=== PATIENT | male | born 2005 | race Caucasian/White ===

== ENCOUNTER → 2024-03-11 | Outpatient (CLI) | payer BC, SELFPAY | END | disposition home or self-care (01) | PROVIDERS: PCP Family Medicine; Referring Provider Family Medicine; Visit Provider Family Medicine | DX: R69 Illness, unspecified (principal) ==

== ENCOUNTER → 2024-12-07 | Outpatient (CLI) | payer BC, SELFPAY ==
--- NOTE | 2024-12-07 13:07 | RAD_ITS ---
PROCEDURE: SHOULDER MIN 2 VIEWS REASON FOR EXAM: Chronic shoulder TECHNIQUE: Two-view right shoulder COMPARISON: None. RAD/Shoulder min 2 Views IMPRESSION: No significant arthritic process or joint narrowing is noted. Satisfactory alignment is seen throughout. No fracture or other significant osseous or joint space abnormality is noted. Negative examination. Reading Location: [id number]
== END | disposition home or self-care (01) ==
LOC: MTRAD 13:07
PROVIDERS: PCP Family Medicine; Referring Provider Family Medicine; Visit Provider Family Medicine
DX: M25.511 Pain in right shoulder (principal)
CPT/HCPCS: 73030

== ENCOUNTER 2025-02-09 16:30 | Outpatient (RCR) | payer BC, SELFPAY ==
--- NOTE | 2024-12-15 10:51 | HP.PTEVAL_ITS ---
Patient's Visit Information Visit Information Visit Information: BRITTANEY ANGELES is a 19 year old M referred to Physical Therapy by Shawn Mccoy MD with a diagnosis of R shoulder pain. Date of Evaluation: 12/15/24 Physical Therapist: Lit Ortiz, MG, OCS, CSCS Visit Plan Frequency: 2x /Week Duration: 4-6 Weeks Plan: 2x/wek for 2-6 weeks(2 to start)... Please do DTR and TP to R rhomboids, traps. Also stretch pecs, most of focus should bee scapulothoracic strength of rhomboids, traps, serratus on R side progressing to general strength at home with pics in first two weeks. Postural focus with scapula retracted and down. pt is to avoid aggravating activities and clicking with HEP and focus on posture. HEP IE:Avoid aggravating activities as much as you can. Fix posture with chest out and shoulder blades down and back before elevating arm Sleep on back or left side with pillow under right arm Repeated activities with upper arms at side as much as possible(and proper posture)?driving, computer etc. Subjective Subjective: R shoulder pain and clicks for over a year now. Using it to lift gives him pain while lifting and after done. Moving it alot can hurt. Pain is back at shoulder blade on R. Comfortable at rest. Keeps him up throbbing at times. Insidious onset, woke up that way one day. Clicks alot. 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 Loses sleep with busy days at work. Spends free time: video games. Sometimes it clicks a bit if moving mouse. Loses sleep 1-2x/week with a bad night. Sleeps on back but rolls to left side. No arm pain or symptoms, maybe one or two times wuick funny bone feeling. Pain R scapular: Pain Intensity (Out of 10): 0 Pain Intensity Range: 0 and 4 Comment: worse with long day at work. Objective Objective: Walks and transfers I today and normal. Posture is forward head and protracted scapula B mildly. Tender to palpation in R UT and mid traps and rhomboids. No obvious winging today but lots of clicking with FW elevation at R scapula almost subluxing scap off rib cage , this happens automatically sometimes also when he is not moving but he can usually stop it. cervical aROM is WNL and without pain, tightness on R side with L sb. scapular AROM is good although retraction and depression are tight feeling on R. g-h AROM WFL but avoids eend range er and flexion due to tightness. elbow and wrist AROM is WFL. reflexes 2/3 patella and achilles Sensation WNL to gross light touch B UE. strength is 4 in elbow flex and ext and wrist flexion ext B, 4- in er with some discomfort and 4 IR on R - sulcus, - HK, - neer, - ext rotation lag test, - drop arm but clicks lowering R arm in subluixing scap. Balance/Special Test Scores Quick DASH Score: 31.8175 Goals Goal 1:: sleep without interruption form shoulder Goal Time Frame: 4-6 Weeks Goal 2:: lift R arm without clicking and instability Goal Time Frame: 4-6 Weeks Goal 3:: Patient feel 80% better in shoulder pain and clicking Goal Time Frame: 4-6 Weeks Goal 4:: I appropriate CHANEL to limit future problems Goal Time Frame: 4-6 Weeks Goal 5:: quic15 or less.quickdash Goal Time Frame: 4-6 Weeks Rehabilitation Potential Physical Therapy Diagnosis: R scapular painlikely scapulothorcaic in nature effecting sleep and comfortable work funciton. Rehabilitation Potential: Fair Anticipated Interventions Patient/Client Instruction: Educate patient on: Condition and Plan of Care For the Purpose of:: To decrease pain, To increase ROM, To improve nutrient delivery to tissue, To improve muscle performance and motor function, To increase tolerance to activity/condition/position and To increase flexibil ity/ROM Therapeutic Exercise to Include: Strength training, Postural training and Flexibilty training For the Purpose of:: To decrease pain, To increase ROM, To improve nutrient delivery to tissue, To improve muscle performance and motor function and To increase tolerance to activity/condition/position Manual Therapy Techniques to Include: Trigger point massage and Soft tissue mobilization For the Purpose of:: To decrease pain, To improve nutrient delivery to tissue and To improve muscle performance and motor function TENS: Yes For the Purpose of:: To decrease pain and To improve nutrient delivery to tissue Text: Thank you for the opportunity to evaluate your patient. For Medicare and Medicare HMO plans, please review the plan of care and approve it. It will need to be FAXED BACK to us at [phone] for Medicare purposes. For Medicare only, by signing this I certify the plan of care. Please let me know if there are questions or concerns regarding this plan of care. Physician Signature: Date:
--- NOTE | 2025-01-26 11:27 | HP.PTREVAL ---
Re-Evaluation Intro: Shawn Mccoy MD, It has been my pleasure to treat BRITTANEY ANGELES over the last 11 visits for R shoulder pain. Please see the progress note below for an update on the physical therapy plan of care! Subjective Subjective: Getting better. Pain is much less. Not with every movement now but just with heavy stuff. Lifting motor or heavy box of parts and then it lingers if he does too much. Repetitive heavy actions will make it work. Pain is higher in neck. and into lats. Clicking is still present getting less frequent. No f/u with Dr. Mccoy. G and OTB ex 3x10, prone with 1-2#. Wants to do more aggressive strength. Objective Objective/Function: Scap appearing symmetrical today, no winging with any UE position on L or R. Tenderness slightly persists in R UT and into lats but no pain at rest or with UE AROM. Good cervical aROM. Able to resist flexion without wining on R side. Same goals still appropriate for 2 more weeks on POC. Plan Plan Plan: lengthen POC 2 more weeeks 2x/week for ... 1. please get aggressive with gym based UE strength and continue to teach gym based scap stabs as pt to go to [employer] when done with PT. Get list and progress to I, utilize principles of progressive loading and esstimated 1 RM. may still do some manual at nd TP release if painful. Balance/Gait/Functional tests Balance/Special Test Scores Quick DASH Score: 27.2725 Goals Goals Goal 1:: sleep without interruption form shoulder Goal Time Frame: 4-6 Weeks Goal Progress: Goal Met Goal 2:: lift R arm without clicking and instability Goal Time Frame: 4-6 Weeks Goal Progress: Goal Met Goal 3:: Patient feel 80% better in shoulder pain and clicking Goal Time Frame: 4-6 Weeks Goal Progress: 60% Goal 4:: I appropriate CHANEL to limit future problems Goal Time Frame: 4-6 Weeks Goal Progress: Progressing Goal 5:: quic15 or less.quickdash Goal Time Frame: 4-6 Weeks Goal Progress: Progressing Anticipated Interventions Anticipated Interventions Patient/Client Instruction: Educate patient on: Condition and Plan of Care For the Purpose of:: To decrease pain, To increase ROM, To improve nutrient delivery to tissue, To improve muscle performance and motor function, To increase tolerance to activity/condition/position and To increase flexibility/ROM Therapeutic Exercise to Include: Strength training, Postural training and Flexibilty training For the Purpose of:: To decrease pain, To increase ROM, To improve nutrient delivery to tissue, To improve muscle performance and motor function and To increase tolerance to activity/condition/position Manual Therapy Techniques to Include: Trigger point massage and Soft tissue mobilization For the Purpose of:: To decrease pain, To improve nutrient delivery to tissue and To improve muscle performance and motor function TENS: Yes For the Purpose of:: To decrease pain and To improve nutrient delivery to tissue Re-Evaluation Ending Re-evaluation ending: Please do not hesitate to contact me at [phone] by phone or if you have questions or concerns regarding this new plan of care! Sincerely, Lit Ortiz, DPT, OCS, CSCS
--- NOTE | 2025-02-09 16:44 | HP.PTDCSUM ---
Discharge Summary D/C summary: It has been my pleasure to treat BRITTANEY ANGELES referred by Shawn Mccoy MD, with the diagnosis of R shoulder pain for a total of 15 visit(s). Discharge Date: 02/09/25 Please see the following information for a summary of their discharge status. Subjective Subjective: Feeling pretty good. Not much pain. Still gets some clicking with anything strenuous. Got it after a couple machines. No pain with clicking. Clicking is less often and improving. Does ex at home gym. Using bands at home. Pain R scapular: Pain Intensity (Out of 10): 0 Overall Improvement % Improvement: 95 Objective Objective/Function: Full arom scap and g-h R and L without pain. Does get grinding with protrusion of R scapula palpable and audible but can control position of scapula better now. Goals Goal 1:: sleep without interruption form shoulder Goal Progress: Goal Met Goal 2:: lift R arm without clicking and instability Goal Progress: Goal Met Goal 3:: Patient feel 80% better in shoulder pain and clicking Goal Progress: 95% Goal 4:: I appropriate CHANEL to limit future problems Goal Progress: Goal Met Goal 5:: quic15 or less.quickdash Goal Progress: Goal Met Plan Plan: d/c to HEP D/C Information Discharge Comments: Pt 95% better but grinding in R scap persists, will get massage next week and check with Dr. Mccoy as needed. Will continue HEP for upper half strengthening d/c sentence: If there are questions or concerns regarding this patient's physical therapy, please feel free to call me at [phone]. Thank you for the referral of this patient. Sincerely, Lit Ortiz, DPT, OCS, CSCS Balance/Gait/Functional tests Balance/Special Test Scores Quick DASH Score: 6.8175 Improvement % Improvement: 95
== END 2025-02-09 19:00 | disposition home or self-care (01) ==
LOC: PT 16:30
PROVIDERS: PCP Family Medicine; Referring Provider Family Medicine; Visit Provider Family Medicine
DX: M25.511 Pain in right shoulder (principal)
CPT/HCPCS: 97110; 97140; 97161; 97164; 97530

== ENCOUNTER → 2025-09-27 | Outpatient (CLI) | payer BC, SELFPAY ==
--- NOTE | 2025-09-27 09:58 | MRI_ITS ---
PROCEDURE: UPPER EXT JOINT ONLY(ROUTINE) 09/27/2025 REASON FOR EXAM: CHRONIC RIGHT SHOULDER PAIN TECHNIQUE: Procedure Code: MRIUEJ Modality: MR Procedure: UPPER EXT JOINT ONLY(ROUTINE) T1, T2, PD, multiplanar and multisequence images were obtained without IV contrast administration. COMPARISON: COMPARISON: None FINDINGS: Bone Marrow: There is no bony contusion or occult fracture. Rotator cuff: There is no muscular atrophy. There is mild distal supraspinatus tendinopathy without tear or retraction. The infraspinatus, subscapularis, and teres minor appear intact. AC joint: The AC joint is aligned with no evidence of separation. There is a type 2 acromion. Labrum: There is no visible labral tear. Biceps tendon. The biceps tendon is present in the biceps tendon groove, with intact anchors. Effusion: There is fluid in the subacromial subdeltoid bursa, with bursitis. There is no significant joint effusion. Soft Tissues: There is thickening of the inferior glenohumeral ligament, which can indicate adhesive capsulitis. MRI/Upper Ext Joint Only(Routine) IMPRESSION: There is mild distal supraspinatus tendinopathy without tear or retraction. There is fluid in the subacromial subdeltoid bursa, with bursitis. There is thickening of the inferior glenohumeral ligament, which can indicate a dhesive capsulitis. Reading Location: [id number]
--- OUTSIDE RECORDS SUMMARY | 2025-09-27 10:24 | XMS RPT_ITS | CCD ---
Author Organization [facility] Care Team Providers Care Message Clerk Name Role Phone MINDY LUCIANO Unavailable Unavailable VARGAS, CHUANCHAU Unavailable Unavailable VARGAS, CHUANCHAU Unavailable Unavailable Nadine OVIEDO, Shawn Primary Care Provider Nadine OVIEDO, Shawn Attending Provider [phone] Nadine OVIEDO, Shawn Referring Provider [phone] Nadine, Chalon Attending Unavailable Nadine, Chalon Referring Unavailable Nadine, Chalon Primary Care Unavailable Nadine, Chalon Attending Unavailable Nadine, Chalon Referring Unavailable Nadine, Chalon Primary Care Unavailable Nadine, Chalon Attending Unavailable Nadine, Chalon Referring Unavailable Nadine, Chalon Primary Care Unavailable Problems Active Problems Problem Classification Problem Date Documented Da te Episodic/Chronic Cardiac dysrhythmias (1 source) Junctional premature depolarization; 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 Other non-traumatic joint disorders (1 source) Pain in right shoulder; Translations: [Pain in right shoulder] Onset: 12-22-2024 Episodic Unclassified (1 source) Unknown / UNK(Unknown) Onset: 05-07-2017 Past or Other Problems Problem Classification Problem Date Documented Da te Episodic/Chronic Residual codes; unclassified (1 source) Illness, unspecified; Translations: [Illness, unspecified] Onset: 03-17-2024 Episodic Sprains and strains (1 source) Sprain of unspecified ligament of right ankle, initial encounter; Translations: [Sprain of unspecified ligament of right ankle, initial encounter] Onset: 06-21-2017 Episodic Results Test Name Value Interpretation Reference Range Facility PT D/C Summary (1)on 025 PT D/C Summary (1) [facility] [address] [place] [address]. [address] [place] [address] / REHABILITATION SERVICES DISCHARGE SUMMARY MR#: [id number] Acct: [id number] Name: GUSTAVO WHITE Rep #: [id number] : 2005 19 From: Lit Ortiz DPT, OCS, CSCS Referring Dr.: Dr. Shawn Mccoy MD Status: REG RCR Insurance: [employer] INSURANCE Discharge Summary D/C summary: It has been my pleasure to treat GUSTAVO WHITE referred by Shawn Mccoy MD, with the diagnosis of R shoulder pain for a total of 15 visit(s). Discharge Date: 02/09/25 Please see the following information for a summary of their discharge status. Subjective Subjective: Feeling pretty good. Not much pain. Still gets some clicking with anything strenuous. Got it after a couple machines. No pain with clicking. Clicking is less often and improving. Does ex at home gym. Using bands at home. Pain R scapular: Pain Intensity (Out of 10): 0 Overall Improvement % Improvement: 95 Objective Objective/Function: Full arom scap and g-h R and L without pain. Does get grinding with protrusion of R scapula palpable and audible but can control position of scapula better now. Goals Goal 1:: sleep without interruption form shoulder Goal Progress: Goal Met Goal 2:: lift R arm without clicking and instability Goal Progress: Goal Met Goal 3:: Patient feel 80% better in shoulder pain and clicking Goal Progress: 95% Goal 4:: I appropriate CHANEL to limit future problems Goal Progress: Goal Met Goal 5:: quic15 or less.quickdash Goal Progress: Goal Met Plan Plan: d/c to HEP D/C Information Discharge Comments: Pt 95% better but grinding in R scap persists, will get massage next week and check with Dr. Mccoy as needed. Will continue HEP for upper half strengthening d/c sentence: If there are questions or concerns regarding this patient's physical therapy, please feel free to call me at [phone]. Thank you for the referral of this patient. Sincerely, Lit Ortiz, KEYANAT, OCS, CSCS Balance/Gait/Functional tests Balance/Special Test Scores Quick DASH Score: 6.8175 Improvement % Improvement: 95 02/09/25 5840 CC: Dr. Shawn Mccoy MD EBG Signed Normal [facility] Re-Evaluation - PT (1)on Re-Evaluation - PT (1) [facility] [address] [place] [address] / REEVALUATION / MEDICARE RECERTIFICATION PHYSICAL THERAPY MR#: [id number] Acct: [id number] Name: GUSTAVO WHITE Rep #: [id number] : 2005 19 From: Lit Ortiz DPT, OCS, CSCS Referring Dr.: Dr. Shawn Mccoy MD Status:REG RCR Insurance: [employer] INSURANCE Re-Evaluation Intro: Shawn Mccoy MD, It has been my pleasure to treat GUSTAVO WHITE over the last 11 visits for R shoulder pain. Please see the progress note below for an update on the physical therapy plan of care! Subjective Subjective: Getting better. Pain is much less. Not with every movement now but just with heavy stuff. Lifting motor or heavy box of parts and then it lingers if he does too much. Repetitive heavy actions will make it work. Pain is higher in neck. and into lats. Clicking is still present getting less frequent. No f/u with Dr. Mccoy. G and OTB ex 3x10, prone with 1-2#. Wants to do more aggressive strength. Objective Objective/Function: Scap appearing symmetrical today, no winging with any UE position on L or R. Tenderness slightly persists in R UT and into lats but no pain at rest or with UE AROM. Good cervical aROM. Able to resist flexion without wining on R side. Same goals still appropriate for 2 more weeks on POC. Plan Plan Plan: lengthen POC 2 more weeeks 2x/week for ... 1. please get aggressive with gym based UE strength and continue to teach gym based scap stabs as pt to go to [employer] when done with PT. Get list and progress to I, utilize principles of progressive loading and esstimated 1 RM. may still do some manual at nd TP release if painful. Balance/Gait/Functional tests Balance/Special Test Scores Quick DASH Score: 27.2725 Goals Goals Goal 1:: sleep without interruption form shoulder Goal Time Frame: 4-6 Weeks Goal Progress: Goal Met Goal 2:: lift R arm without clicking and instability Goal Time Frame: 4-6 Weeks Goal Progress: Goal Met Goal 3:: Patient feel 80% better in shoulder pain and clicking Goal Time Frame: 4-6 Weeks Goal Progress: 60% Goal 4:: I appropriate HCANEL to limit future problems Goal Time Frame: 4-6 Weeks Goal Progress: Progressing Goal 5:: quic15 or less.quickdash Goal Time Frame: 4-6 Weeks Goal Progress: Progressing Anticipated Interventions Anticipated Interventions Patient/Client Instruction: Educate patient on: Condition and Plan of Care For the Purpose of:: To decrease pain, To increase ROM, To improve nutrient delivery to tissue, To improve muscle performance and motor function, To increase tolerance to activity/condition/position and To increase flexibility/ROM Therapeutic Exercise to Include: Strength training, Postural training and Flexibilty training For the Purpose of:: To decrease pain, To increase ROM, To improve nutrient delivery to tissue, To improve muscle performance and motor function and To increase tolerance to activity/condition/position Manual Therapy Techniques to Include: Trigger point massage and Soft tissue mobilization For the Purpose of:: To decrease pain, To improve nutrient delivery to tissue and To improve muscle performance and motor function TENS: Yes For the Purpose of:: To decrease pain and To improve nutrient delivery to tissue Re-Evaluation Ending Re-evaluation ending: Please do not hesitate to contact me at [phone] by phone or if you have questions or concerns regarding this new plan of care! Sincerely, KEYANA NiT, OCS, CSCS 01/26/25 1127 CC: Dr. Shawn Mccoy MD EBG Signed For Medicare only, by signing this I certify the plan of care. Physicians Signature Date Normal [facility] Inital Evaluation (1) - PTon 12-15-2024 Inital Evaluation (1) - PT [facility] [address] [place] [address] / REHABILITATION SERVICES INITIAL EVALUATION MR#: [id number] Acct: [id number] Name: GUSTAVO WHITE Rep #: [id number] : 2005 19 From: Lit Ortiz DPT, OCS, CSCS Referring Dr.: Dr. Shawn Mccoy MD Status: REG RCR Insurance: [employer] INSURANCE Patient's Visit Information Visit Information Visit Information: GUSTAVO WHITE is a 19 year old M referred to Physical Therapy by Shawn Mccoy MD with a diagnosis of R shoulder pain. Date of Evaluation: 12/15/24 Physical Therapist: Lit Ortiz DPT, OCS, CSCS Visit Plan Frequency: 2x /Week Duration: 4-6 Weeks Plan: 2x/wek for 2-6 weeks(2 to start)... Please do DTR and TP to R rhomboids, traps. Also stretch pecs, most of focus should bee scapulothoracic strength of rhomboids, traps, serratus on R side progressing to general strength at home with pics in first two weeks. Postural focus with scapula retracted and down. pt is to avoid aggravating activities and clicking with HEP and focus on posture. HEP IE:Avoid aggravating activities as much as you can. Fix posture with chest out and shoulder blades down and back before elevating arm Sleep on back or left side with pillow under right arm Repeated activities with upper arms at side as much as possible(and proper posture)???driving, computer etc. Subjective Subjective: R shoulder pain and clicks for over a year now. Using it to lift gives him pain while lifting and after done. Moving it alot can hurt. Pain is back at shoulder blade on R. Comfortable at rest. Keeps him up throbbing at times. Insidious onset, woke up that way one day. Clicks alot. 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 Loses sleep with busy days at work. Spends free time: video games. Sometimes it clicks a bit if moving mouse. Loses sleep 1-2x/week with a bad night. Sleeps on back but rolls to left side. No arm pain or symptoms, maybe one or two times wuick funny bone feeling. Pain R scapular: Pain Intensity (Out of 10): 0 Pain Intensity Range: 0 and 4 Comment: worse with long day at work. Objective Objective: Walks and transfers I today and normal. Posture is forward head and protracted scapula B mildly. Tender to palpation in R UT and mid traps and rhomboids. No obvious winging today but lots of clicking with FW elevation at R scapula almost subluxing scap off rib cage , this happens automatically sometimes also when he is not moving but he can usually stop it. cervical aROM is WNL and without pain, tightness on R side with L sb. scapular AROM is good although retraction and depression are tight feeling on R. g-h AROM WFL but avoids eend range er and flexion due to tightness. elbow and wrist AROM is WFL. reflexes 2/3 patella and achilles Sensation WNL to gross light touch B UE. strength is 4 in elbow flex and ext and wrist flexion ext B, 4- in er with some discomfort and 4 IR on R - sulcus, - HK, - neer, - ext rotation lag test, - drop arm but clicks lowering R arm in subluixing scap. Balance/Special Test Scores Quick DASH Score: 31.8175 Goals Goal 1:: sleep without interruption form shoulder Goal Time Frame: 4-6 Weeks Goal 2:: lift R arm without clicking and instability Goal Time Frame: 4-6 Weeks Goal 3:: Patient feel 80% better in shoulder pain and clicking Goal Time Frame: 4-6 Weeks Goal 4:: I appropriate CHANEL to limit future problems Goal Time Frame: 4-6 Weeks Goal 5:: quic15 or less.quickdash Goal Time Frame: 4-6 Weeks Rehabilitation Potential Physical Therapy Diagnosis: R scapular painlikely scapulothorcaic in nature effecting sleep and comfortable work funciton. Rehabilitation Potential: Fair Anticipated Interventions Patient/Client Instruction: Educate patient on: Condition and Plan of Care For the Purpose of:: To decrease pain, To increase ROM, To improve nutrient delivery to tissue, To improve muscle performance and motor function, To increase tolerance to activity/condition/position and To increase flexibility/ROM Therapeutic Exercise to Include: Strength training, Postural training and Flexibilty training For the Purpose of:: To decrease pain, To increase ROM, To improve nutrient delivery to tissue, To improve muscle performance and motor function and To increase tolerance to activity/condition/position Manual Therapy Techniques to Include: Trigger point massage and Soft tissue mobilization For the Purpose of:: To decrease pain, To improve nutrient delivery to tissue and To improve muscle performance and motor function TENS: Yes For the Purpose of:: To decrease pain and To improve nutrient delivery to tissue Text: Thank you for the opportunity to evaluate your patient. For Medicare and Medicare HMO plans, please (more content not included)... Normal [facility] Shoulder min 2 Viewson 12-07 Shoulder min 2 Views [facility] [address] [place] [address] Shoulder min 2 Views MR#: [id number] Acct: [id number] Name: GUSTAVO WHITE Rep #: [id number] : 2005 M 19 From: Carlin Larios PCP: Dr. Shawn Mccoy MD Status: REG CLI Study: Shoulder min 2 Views Date of Exam: 12/07/24 Exam# [id number] Ordering Dr: Shawn Mccoy MD PROCEDURE: SHOULDER MIN 2 VIEWS REASON FOR EXAM: Chronic shoulder TECHNIQUE: Two-view right shoulder COMPARISON: None. RAD/Shoulder min 2 Views IMPRESSION: No significant arthritic process or joint narrowing is noted. Satisfactory alignment is seen throughout. No fracture or other significant osseous or joint space abnormality is noted. Negative examination. Reading Location: [address] CC: Dr. Shawn Mccoy MD Wire Roller: Signed [facility] PROGRESSon 09-17-2017 Protein HNO ID: [id number] thor: Lit Durham [facility] CenterhService: (none)Author Type: (none)Type: Progress NotesFiled: 09/28/2017 10:01 PMNote Text:[facility] ([facility])Social and Behavioral Skills GroupPatient Name: Gustavo WhiteMRN: [id number] Care Physician: Bakari Grant, MDDate of : 2005 Age: [age] year old Gender: [facility]Dx: ADHD - COMBINEDDOS: 09/16/2017Time: 5:00 -6:30PMGustavo White is enrolled in a seven week social/behavioral skillstraining group targeting Attention Deficit/Hyperactivity Disorder symptomsthat interfere with social functioning. Child and parent groups runconcurrently for 90 minutes. The child groups are facilitated by Pearl, while parent groups are facilitated by Valeri Rand, [facility] and Lit [place] BA, [place].CPT: 06745 Group PsychotherapyCHILD GROUP:Skill Reviewed: Saying Goodbye; Award Ceremony with ParentsBehavioral Observations: Gustavo Crisostomo) was actively engaged in the groupactivities and responded appropriately to the group contingencies. Hefrequently contributed to the group and used the social skillappropriately throughout group activities. During group, Ellis providedthorough examples of how to accept change during transition periods. Elliscan continue to work on providing relevant contributions to the groupdiscussion, and generalizing the social skills learned in group to [facility] setting.CPT: 42518 Multi Family Group PsychotherapyPARENT GROUP:Skills Reviewed: Parents reflected on the skills that they used natuaraly,the skills that required effort, and the skills they continue to havequestions about. Father engaged in group activity and completed courseevaluations. Specifically, he reflected the success of the Parent-TeenNegotiation. He noted Ellis often stated he did not feel heard by hisfather, and in session father was able to listen and communicate with him.Lit Durham BA, CTHilaValeri Cunha, [facility]-SLicensed Professional Clinical Counselor, Pre Algebra Teacher Normal [facility] CNOVon 09-16-2017 CNOV Office Visit (PPSREH) -GUSTAVO WHITE ([id number]) 3 MDate Time Provider Chdtpbghis13/21/17 5:00 PM SUSHILA ACKERMAN During your visit today, we recorded the following information about you:Lit Durham [facility] 09/22/2017 1:14 PM SignedADHD Center for Evaluation and Treatment ([facility])Social and Behavioral Skills GroupPatient Name: Gustavo WhiteMRN: [id number] Care Physician: Bakari Grant, MDDate of : 2005 Age: [age] year old Gender: [facility]Dx: ADHD - COMBINEDDOS: 09/16/2017Time: 5:00 -6:30PMGustavo White is enrolled in a seven week social/behavioral skills traininggroup targeting Attention Deficit/Hyperactivity Disorder symptoms thatinterfere with social functioning. Child and parent groups run concurrently for90 minutes. The child groups are facilitated by Kings Mcneil, while parentgroups are facilitated by Valeri Bloom, [facility] and Lit Ch[place], [place].CPT: 92555 Group PsychotherapyCHILD GROUP:Skill Reviewed: Saying Goodbye; Award Ceremony with ParentsBehavioral Observations: Gustavo (Ellis) was actively engaged in the groupactivities and responded appropriately to the group contingencies. Hefrequently contributed to the group and used the social skill appropriatelythroughout group activities. During group, Ellis provided thorough examples ofhow to accept change during transition periods. Ellis can continue to work onproviding relevant contributions to the group discussion, and generalizing thesocial skills learned in group to his home setting.CPT: 86352 Multi Family Group PsychotherapyPARENT GROUP:Skills Reviewed: Parents reflected on the skills that they used natuaraly, theskills that required effort, and the skills they continue to have questionsabout. Father engaged in group activity and completed course evaluations.Specifically, he reflected the success of the Parent-Teen Negotiation. He notedJ.C. often stated he did not feel ANDquot;heardANDquot; by his father, and insession father was able to listen and communicate with him.Lit Durham BA, CTHiValeri Aguilera, [facility]SLicensed Professional Clinical Counselor, SupervisorReferring Provider: SELF [200]Allergies As of Date: 09/16/2017(No Known Allergies)Date Reviewed: 06/21/2017Reviewed by: Jen (Rn) ELVIRA Katz - Fully AssessedReason for Visit: ADHD - Combined [1100]Primary Visit Diagnosis:Attention deficit hyperactivity disorder (ADHD), combined type, moderate [F90.2]Prescriptions as of 09/16/2017 Sig: SERTRALINE 100 MG TABLET Take 100 mg by mouth once bella* METHYLPHENIDATE ER 54 MG TABL* Take 54 mg by mouth once ewa*Problem List As Of Date 09/16/2017 Noted Resolved 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] INVALID FOR* 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.2] INVALID FOR* 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]INVALID FOR* Depression [F32.9] INVALID FOR* ADHD (attention deficit hyperactivity disorder)*INVALID FOR* Status:Closed by SUSHILA SPAIN on 09/28/17 [facility] PROGRESSon 09-15-2017 Protein HNO ID: [id number] thor: Lit Durham [facility] Hospitalervice: (none)Author Type: (none)Type: Progress NotesFiled: 09/21/2017 8:37 PMNote Text:ADHD [facility] ([facility])Social and Behavioral Skills GroupPatient Name: Gustavo WhiteMRN: [id number] Care Physician: Bakari Grant, MDDate of : 2005 Age: [age] year old Gender: [facility]Dx: ADHD - COMBINEDDOS: 09/09/2017Time: 5:45PM - 6:30PMGustavo White is enrolled in a seven week social/behavioral skillstraining group targeting Attention Deficit/Hyperactivity Disorder symptomsthat interfere with social functioning. Child and parent groups runconcurrently for 90 minutes. The child groups are facilitated by Pearl, while parent groups are facilitated by Valeri Rand, [facility] and Lit [place], [place], [place].CPT: 38722 - Family Psychotherapy with Pt. Present (26 - 50+ minutes)Behavioral Observations:During this week's session, adolescents and their parents met together andengaged in a parent-teen negotiation session. Based upon theParent-Teenager Negotiation (PTN) training model, parents and adolescentsutilized negotiation skills to develop solutions and written contracts forindividually identified problems or issues that have previously been areasof difficulty. The goal of the negotiation was to create a writtencontract where both parties produce a ?win-win? situation. Negotiationsessions were attended by Gustavo (PRASANTH) and his parents, and facilitated byKings Mcneil and Robinson Arvizu behavioral aide. Parents and adolescentsutilized communication and negotiation skills to develop solutions andwritten contracts for individually identified problems or issues that havepreviously been areas of difficulty. The goal of the negotiation sessionsis to create a written contract where both parties produce a ?win-win?situation.Gustavo and his parents successfully negotiated issues including waking upon time for school, regulating anger, and independence. A final contractwas written and signed by all parties and re-evaluation dates wereincluded. PRASANTH demonstrated excellent communication and negotiation skillsin the areas of controlling anger, agreeing on at least one point, andmaking appropriate eye contact. PRASANTH?s parents demonstrated severalstrengths including negotiating in good chad, restating, and recognizingJC?s feelings. Additionally, they showed an increased knowledge ofprinciples 2, 4, 6, and 16 in the 20 Principles of Negotiations listedbelow. PRASANTH and his parents may benefit from further practice with stayingon task, speaking in the present and future, and stating issues inspecific language.Good ways to communicateGood ways to Negotiate1. Did I start all sentences with I? 1. Did I try to agree on at least one point?2. Did I make appropriate eye contact? 2. Mily compromise? On what issue?3. Did I state issues in specific language? 3. Did I present an alternative?4. Did I recognize other?s feelings? 4. Did I stay on task?5. Did I control my anger?5. Did I speak in the present and in the future?6. Did I restate? 6. Did I negotiate in good chad?7. Did I negotiate in good chad?7. Did we Implement the contract?20 Principles to Parent-Adolescent Negotiation Sessions1. Start with a statement of issues to negotiate. Parents identify anissue and the adolescent identifies an issue (in random order). Parentsstate what is non-negotiable.2. Point out that neither the parent nor adolescent will get exactly whatthey want. The essence of negotiation is compromise.3. The parent and adolescent should state the best possible and leastacceptable solution for each issue negotiated.4. Point out the consequences of not negotiating. For an adolescent, theconsequences of failing to negotiate will likely be total parental controlor action by an outside agency.5. Discuss the proper time and place to negotiate. Everyone must be calm,yet interested. Negotiation should not be done when family members areextremely angry or when a problem seems so remote that it is notmeaningful. Sit around a table or in upright chairs. This seatingarrangement gives an aura of seriousness to the conversation.6. Take responsibility for your feelings and issues. Start with ?I.?Avoid ?you? statements.7. Use effective communication. Reframe, that is, put a statement inwords that are not emotionally charged (e.g., ?I would like you to be homeat 4:00,? not ?Be home at 4:00 or you?re in big trouble!?). Also restatewhat was just said so that erroneous conclusions are not reached (e.g.,?Did I just hear you say that you failed your math test??). Make surethat parents and adolescent perceive the situation in the same way.Paraphrase (say the same thing, only in different words) in order toclarify and understand what is being said.8. Negotiate in good chad. Don?t reserve decisions until after thesession and say to yourself, ?I don?t have to do what I said I would,because I didn?t really want to and I just said that because we weremeeting.?9. Talk in specifics, not generalities (i.e., ?Come home at 5:00,? not?Take responsibility for yourself?). Focus on one specific issue at atime.10. Talk in the present and the future, not in the past. Do notrepeatedly discuss a past situation. Discuss what you can do to changethe situation in the future.11. Practice what you are going to say before the session so that you cantalk without undue emotion.12. Treat each other as psychological equals. Parent must not dictate totheir adolescent. Adolescents must not attempt to demand privileges fromtheir parents. Rather discuss and compromise.13. State clearly what you want from each other. Do not bluff hoping fora better outcome. Do not assume that you know what will be said.14. If anger occurs, take time out from conversation until you are incontrol of yourself. If your attention drifts, take a short break andattempt to focus again.15. Acknowledge each other?s feelings and apologize when you are wrong.16. Agree when you can. If you can agree on one small point, do so. Donot assume that you must agree on everything you want from each other.17. If either parent or child doesn?t like what the other presents as asolution to a problem, then that person has an obligation to present analternate solution.18. Decide how any solution reached will be monitored. For example, if aparent is not home when the child arrives, how will that parent know thechild arrived on time?19. Do not ask for a commitment until the end of the session.20. Write down what you have decided. The parents and adolescent shouldsign their names to show that they understand what they have negotiated.Neither parent nor child can change the decisions without a negotiationsession, except in an emergency. Define ?emergency? for your family.Next session will be termination session. The family will discusssuccesses of contract and trouble-shoot difficulties. Homework is toimplement contract for one week. Families were instructed not to changethe contract.Lit Durham BA, Valeri Braxton, [facility]icensed Professional Clinical Counselor, Pre Algebra Teacher Normal [facility] CNOVon 09-09-2017 CNOV Office Visit (PPSREH) -GUSTAVO WHITE ([id number]) 3 MDate Time Provider Udgfatszmm34/14/17 5:00 PM SUSHILA ACKERMAN During your visit today, we recorded the following information about you:Lit Durham [facility] 09/21/2017 8:37 PM SignedADHD [facility] ([facility])Social and Behavioral Skills GroupPatient Name: Gustavo WhiteMRN: [id number] Care Physician: Bakari Grant, MDDate of : 2005 Age: [age] year old Gender: [facility]Dx: ADHD - COMBINEDDOS: 09/09/2017Time: 5:45PM - 6:30PMGustavo White is enrolled in a seven week social/behavioral skills traininggroup targeting Attention Deficit/Hyperactivity Disorder symptoms thatinterfere with social functioning. Child and parent groups run concurrently for90 minutes. The child groups are facilitated by Kings Mcneil, while parentgroups are facilitated by Valeri Bloom, [facility] and Lit Chicas, BA, [place].CPT: 12487 - Family Psychotherapy with Pt. Present (26 - 50+ minutes)Behavioral Observations:During this week's session, adolescents and their parents met together andengaged in a parent-teen negotiation session. Based upon the Parent-TeenagerNegotiation (PTN) training model, parents and adolescents utilized negotiationskills to develop solutions and written contracts for individually identifiedproblems or issues that have previously been areas of difficulty. The goal ofthe negotiation was to create a written contract where both parties produce a?win-win? situation. Negotiation sessions were attended by Gustavo MAYES) and hisparents, and facilitated by Kings Mcneil and Robinson Arvizu behavioral aide.Parents and adolescents utilized communication and negotiation skills todevelop solutions and written contracts for individually identified problems orissues that have previously been areas of difficulty. The goal of thenegotiation sessions is to create a written contract where both parties producea ?win-win? situation.Gustavo and his parents successfully negotiated issues including waking up ontime for school, regulating anger, and independence. A final contract waswritten and signed by all parties and re-evaluation dates were included. JCdemonstrated excellent communication and negotiation skills in the areas ofcontrolling anger, agreeing on at least one point, and making appropriate eyecontact. PRASANTH?s parents demonstrated several strengths including negotiating ingood chad, restating, and recognizing PRASANTH?s feelings. Additionally, they showedan increased knowledge of principles 2, 4, 6, and 16 in the 20 Principles ofNegotiations listed below. PRASANTH and his parents may benefit from further practicewith staying on task, speaking in the present and future, and stating issues inspecific language.Good ways to communicate Goodways to Negotiate1. Did I start all sentences with I? 1.Did I try to agree on at least one point?2. Did I make appropriate eye contact? 2. Did Icompromise? On what issue?3. Did I state issues in specific language? 3. Did I present an alternative?4. Did I recognize other?s feelings? 4. Mily stay on task?5. Did I control my anger? 5.Did I speak in the present and in the future?6. Did I restate? 6. Mily negotiate in good chad?7. Did I negotiate in good chad? 7.Did we Implement the contract?20 Principles to Parent-Adolescent Negotiation Sessions1. Start with a statement of issues to negotiate. Parents identify an issueand the adolescent identifies an issue (in random order). Parents state whatis non-negotiable.2. Point out that neither the parent nor adolescent will get exactly what theywant. The essence of negotiation is compromise.3. The parent and adolescent should state the best possible and leastacceptable solution for each issue negotiated.4. Point out the consequences of not negotiating. For an adolescent, theconsequences of failing to negotiate will likely be total parental control oraction by an outside agency.5. Discuss the proper time and place to negotiate. Everyone must be calm, yetinterested. Negotiation should not be done when family members are extremelyangry or when a problem seems so remote that it is not meaningful. Sit arounda table or in upright chairs. This seating arrangement gives an aura ofseriousness to the conversation.6. Take responsibility for your feelings and issues. Start with ?I.? Avoid?you? statements.7. Use effective communication. Reframe, that is, put a statement in wordsthat are not emotionally charged (e.g., ?I would like you to be home at 4:00,?not ?Be home at 4:00 or you?re in big trouble!?). Also restate what was justsaid so that erroneous conclusions are not reached (e.g., ?Did I just hear yousay that you failed your math test??). Make sure that parents and adolescentperceive the situation in the same way. Paraphrase (say the same thing, onlyin different words) in order to clarify and understand what is being said.8. Negotiate in good chad. Don?t reserve decisions until after the sessionand say to yourself, ?I don?t have to do what I said I would, because I didn?treally want to and I just said that because we were meeting.?9. Talk in specifics, not generalities (i.e., ?Come home at 5:00,? not ?Takeresponsibility for yourself?). Focus on one specific issue at a time.10. Talk in the present and the future, not in the past. Do not repeatedlydiscuss a past situation. Discuss what you can do to change the situation inthe future.11. Practice what you are going to say before the session so that you can talkwithout undue emotion.12. Treat each other as psychological equals. Parent must not dictate to theiradolescent. Adolescents must not attempt to demand privileges from theirparents. Rather discuss and compromise.13. State clearly what you want from each other. Do not bluff hoping for abetter outcome. Do not assume that you know what will be said.14. If anger occurs, take time out from conversation until you are in controlof yourself. If your attention drifts, take a short break and attempt to focusagain.15. Acknowledge each other?s feelings and apologize when you are wrong.16. Agree when you can. If you can agree on one small point, do so. Do notassume that you must agree on everything you want from each other.17. If either parent or child doesn?t like what the other presents as asolution to a problem, then that person has an obligation to present analternate solution.18. Decide how any solution reached will be monitored. For example, if aparent is not home when the child arrives, how will that parent know the childarrived on time?19. Do not ask for a commitment until the end of the session.20. Write down what you have decided. The parents and adolescent should signtheir names to show that they understand what they have negotiated. Neitherparent nor child can change the decisions without a negotiation session, exceptin an emergency. Define ?emergency? for your family.Next session will be termination session. The family will discuss successes ofcontract and trouble-shoot difficulties. Homework is to implement contract forone week. Families were instructed not to change the contract.Lit Durham BA, Crow Ackerman [facility], [facility]icens Professional Clinical Counselor, SupervisorReferring Provider: SELF [[id number]]Allergies As of Date: 09/09/2017(No Known Allergies)Date Reviewed: 06/21/2017Reviewed by: Jen (Rn) ELVIRA Katz - Fully AssessedReason for Visit: ADHD - Combined [1100]Primary Visit Diagnosis:Attention deficit hyperactivity disorder (ADHD), combined type, moderate [F90.2]Prescriptions as of 09/09/2017 Sig: SERTRALINE 100 MG TABLET Take 100 mg by mouth once bella* METHYLPHENIDATE ER 54 MG TABL* Take 54 mg by mouth once ewa*Problem List As Of Date 09/09/2017 Noted Resolved 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] INVALID FOR* 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.2] INVALID FOR* 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]INVALID FOR* Depression [F32.9] INVALID FOR* ADHD (attention deficit hyperactivity disorder)*INVALID FOR* Status:Closed by KIM FORTESUSHILA Mo on 09/21/17 Normal [facility] PROGRESSon 09-03-2017 Protein HNO ID: [id number] thor: Lit Durham [facility]ervice: (none)Author Type: (none)Type: Progress NotesFiled: 09/21/2017 7:30 PMNote Text:[facility] ([facility])Social and Behavioral Skills GroupPatient Name: Gustavo WhiteMRN: [id number] Care Physician: Bakari Grant, MDDate of : 2005 Age: [age] year old Gender: male[facility] 5Dx: ADHD - COMBINEDDOS: 09/02/2017Time: 5:00 -6:30PMJacoale White is enrolled in a seven week social/behavioral skillstraining group targeting Attention Deficit/Hyperactivity Disorder symptomsthat interfere with social functioning. Child and parent groups runconcurrently for 90 minutes. The child groups are facilitated by Pearl, while parent groups are facilitated by Valeri Rand, [facility] and Lit Durham BA, [place].CPT: [id number] Group PsychotherapyCHILD GROUP:Skill Reviewed: Negotiation AND CompromiseBehavioral Observations: Gustavo VigilThiernoBro) was actively engaged in the groupactivities and responded appropriately to the group contingencies. Hefrequently contributed his thoughts and ideas to the group and used thesocial skill appropriately throughout the activities. During group, Elliscontributed real-life examples of conflict/disagreement, as well ascreative strategies to help to resolve conflict and achieve a compromise.Overall, he demonstrated comprehension of the skill and group levelsystem. Ellis can continue to work on consistently providing relevantcontributions to the group discussion (e.g. At times contributions weretangential or off-topic) and being an effective leader to his peers.CPT: [id number] Multi Family Group PsychotherapyPARENT GROUP:Skills Reviewed: Identified values as a parent; identified family values.Mother attended group and was actively engaged as evidenced by attentiveand active in discussion regarding next week's Parent-Teenage Negotiation.Lit Durham BA, CTHiValeri Aguilera, [facility]SLicensed Professional Clinical Counselor, Pre Algebra Teacher Normal [facility] CNOVon 09-02-2017 CNOV Office Visit (PPSREH) -GUSTAVO WHITE ([id number]) 3 MDate Time Provider Xchidowqdi05/7/17 5:00 PM SUSHILA ACKERMAN During your visit today, we recorded the following information about you:Lit Durham [facility] 09/08/2017 1:20 PM SignedADHD [facility] ([facility])Social and Behavioral Skills GroupPatient Name: Gustavo WhiteMRN: [id number] Care Physician: Bakari Grant, MDDate of : 2005 Age: [age] year old Gender: male[facility] 5Dx: ADHD - COMBINEDDOS: 09/02/2017Time: 5:00 -6:30PMGustavo White is enrolled in a seven week social/behavioral skills traininggroup targeting Attention Deficit/Hyperactivity Disorder symptoms thatinterfere with social functioning. Child and parent groups run concurrently for90 minutes. The child groups are facilitated by Kings Mcneil, while parentgroups are facilitated by Valeri Bloom, [facility] and Lit Chicas, BA, [place].CPT: [id number] Group PsychotherapyCHILD GROUP:Skill Reviewed: Negotiation ANDamp; CompromiseBehavioral Observations: Gustavo Crisostomo) was actively engaged in the groupactivities and responded appropriately to the group contingencies. Hefrequently contributed his thoughts and ideas to the group and used the socialskill appropriately throughout the activities. During group, BatshevaBro contributedreal-life examples of conflict/disagreement, as well as creative strategies tohelp to resolve conflict and achieve a compromise. Overall, he demonstratedcomprehension of the skill and group level system. BatshevaBro can continue to workon consistently providing relevant contributions to the group discussion (e.g.At times contributions were tangential or off-topic) and being an effectiveleader to his peers.CPT: 24289 Multi Family Group PsychotherapyPARENT GROUP:Skills Reviewed: Identified values as a parent; identified family values.Mother attended group and was actively engaged as evidenced by attentive andactive in discussion regarding next week's Parent-Teenage Negotiation.Lit Durham BA, Valeri Braxton, [facility] Professional Clinical Counselor, SupervisorReferring Provider: SELF [[id number]]Allergies As of Date: 09/02/2017(No Known Allergies)Date Reviewed: 06/21/2017Reviewed by: Jen (Rn) ELVIRA Katz - Fully AssessedReason for Visit: ADHD - Combined [1100]Primary Visit Diagnosis:Attention deficit hyperactivity disorder (ADHD), combined type, moderate [F90.2]Prescriptions as of 09/02/2017 Sig: SERTRALINE 100 MG TABLET Take 100 mg by mouth once bella* METHYLPHENIDATE ER 54 MG TABL* Take 54 mg by mouth once ewa*Problem List As Of Date 09/02/2017 Noted Resolved 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] INVALID FOR* 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.2] INVALID FOR* 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]INVALID FOR* Depression [F32.9] INVALID FOR* ADHD (attention deficit hyperactivity disorder)*INVALID FOR* Status:Closed by KIM FORTESUSHILA Mo on 09/21/17 Normal [facility] PROGRESSon 08-20-2017 Protein HNO ID: [id number] thor: Lit Durham [facility]ervice: (none)Author Type: (none)Type: Progress NotesFiled: 09/01/2017 4:52 PMNote Text:[facility] ([facility])Social and Behavioral Skills GroupPatient Name: Gustavo WhiteMRN: [id number] Care Physician: Bakari Grant, MDDate of : 2005 Age: [age] year old Gender: male[facility]: 4Dx: ADHD - COMBINEDDOS: 08/19/2017Time: 5:00 -6:30PMGustavo White is enrolled in a seven week social/behavioral skillstraining group targeting Attention Deficit/Hyperactivity Disorder symptomsthat interfere with social functioning. Child and parent groups runconcurrently for 90 minutes. The child groups are facilitated by WillAnastasiadis, while parent groups are facilitated by Valeri Rand, [facility] and Lit Durham BA, [place].CPT: [id number] Group PsychotherapyCHILD GROUP:Skill Reviewed: Brainstorming AND TeamworkBehavioral Observations: Gustavo AnitaEllis) was actively engaged in the groupactivities and responded appropriately to the group contingencies. Hefrequently contributed his thoughts and ideas to the group and used thesocial skill appropriately throughout group activities (e.g. egg dropactivity). During group, BatshevaBro participated as a steamer blocker and led thegroup to successfully work toward a sharing goal using brainstorming andeffective communication with peers. Ellis can continue to work ongeneralizing brainstorming skills to other problem-solving situations heencounters, and teamwork with peers to school and community settings.CPT: 67884 Multi Family Group PsychotherapyPARENT GROUP:Skills Reviewed: Identify 11 different types of executive functioningskills (Lucien AND Candy); specifically identifying strengths/weakness ofchild's executive functioning skills compared to strengths/weaknesses ofparent's executive functioning skills. Parents learned the skill plannedignoring.Parent was engaged in session as evidenced by participating in small groupdiscussion.Lit Durham BA, [facility] Medical CenterValeri Aguilera, [facility] Professional Clinical Counselor, Pre Algebra Teacher Normal [facility] CNOVon 08-19-2017 CNOV Office Visit (PPSREH) -GUSTAVO WHITE ([id number]) [facility] Time Provider Klhlyhjtge51/24/17 5:00 PM SUSHILA ACKERMAN PPSREH During your visit today, we recorded the following information about you:Lit Durham [facility] 08/25/2017 2:39 PM [facility] ([facility])Social and Behavioral Skills GroupPatient Name: Gustavo WhiteMRN: [id number] Care Physician: Bakari Grant, MDDate of : 2005 Age: [age] year old Gender: male[facility]: 4Dx: ADHD - COMBINEDDOS: 08/19/2017Time: 5:00 -6:30PMGustavo White is enrolled in a seven week social/behavioral skills traininggroup targeting Attention Deficit/Hyperactivity Disorder symptoms thatinterfere with social functioning. Child and parent groups run concurrently for90 minutes. The child groups are facilitated by Kings Mcneil, while parentgroups are facilitated by Valeri Bloom, [facility] and Lit Chicas BA, [place].CPT: 18524 Group PsychotherapyCHILD GROUP:Skill Reviewed: Brainstorming ANDamp; TeamworkBehavioral Observations: Gustavo (Thaliaot;EllisANDquot;) was actively engaged in thegroup activities and responded appropriately to the group contingencies. Hefrequently contributed his thoughts and ideas to the group and used the socialskill appropriately throughout group activities (e.g. ANDquot;egg dropANDquot;activity). During group, Ellis participated as a steamer blocker and led the groupto successfully work toward a sharing goal using brainstorming and effectivecommunication with peers. Ellis can continue to work on generalizingbrainstorming skills to other problem-solving situations he encounters, andteamwork with peers to school and community settings.CPT: 85977 Multi Family Group PsychotherapyPARENT GROUP:Skills Reviewed: Identify 11 different types of executive functioning skills(Lucien ANDvane; Candy); specifically identifying strengths/weakness of child'sexecutive functioning skills compared to strengths/weaknesses of parent'sexecutive functioning skills. Parents learned the skill planned ignoring.Parent was engaged in session as evidenced by participating in small groupdiscussion.Lit Durham BA, CTHilaValeri Cunha, [facility]icensed Professional Clinical Counselor, SupervisorReferring Provider: SELF [200]Allergies As of Date: 08/19/2017(No Known Allergies)Date Reviewed: 06/21/2017Reviewed by: Jen Olea) Katz, RN - Fully AssessedReason for Visit: ADHD - Combined [1100]Primary Visit Diagnosis:Attention deficit hyperactivity disorder (ADHD), combined type, moderate [F90.2]Prescriptions as of 08/19/2017 Sig: SERTRALINE 100 MG TABLET Take 100 mg by mouth once bella* METHYLPHENIDATE ER 54 MG TABL* Take 54 mg by mouth once ewa*Problem List As Of Date 08/19/2017 Noted Resolved 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] INVALID FOR* 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.2] INVALID FOR* 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]INVALID FOR* Depression [F32.9] INVALID FOR* ADHD (attention deficit hyperactivity disorder)*INVALID FOR* Status:Closed by SUSHILA SPAIN on 09/01/17 [facility] PROGRESSon 08-13-2017 Protein HNO ID: [id number] thor: Lit Durham [facility]ervice: (none)Author Type: (none)Type: Progress NotesFiled: 08/24/2017 9:45 PMNote Text:[facility] ([facility])Social and Behavioral Skills GroupPatient Name: Gustavo WhiteMRN: [id number] Care Physician: Bakari Grant, MDDate of : 2005 Age: [age] year old Gender: male[facility] 3Dx: ADHD - COMBINEDDOS: 08/12/2017Time: 5:00 -6:30PMGustavo White is enrolled in a seven week social/behavioral skillstraining group targeting Attention Deficit/Hyperactivity Disorder symptomsthat interfere with social functioning. Child and parent groups runconcurrently for 90 minutes. The child groups are facilitated by Pearl, while parent groups are facilitated by Sushila Medrano, Valeri, [facility] and Lit Durham, BA, [place].CPT: 79003 Group PsychotherapyCHILD GROUP:Skill Reviewed: Interrupting AppropriatelyBehavioral Observations*: Gustavo Crisostomo) was actively engaged in the groupactivities and responded appropriately to the group contingencies. Hefrequently contributed thoughts and ideas to the group and demonstratedability to use the social skill appropriately throughout the session.During group, Ellis provided a variety of examples of inappropriate andappropriate interruptions, and was able to differentiate betweenappropriate and inappropriate examples based on situation/timing and modeof interruption. Ellis can continue to work on consistently providingtask-related, nonredundant statements to the group and generalizing theskill to other settings.*Note: Ellis?s mother inquired with film maker about individual counselingfor Ellis based on concerns regarding difficulty managing anger andbehavior at home, and reported difficulty generalizing social skills tothe home setting. Hammer Setter to discuss behavioral observations andresponse to group setting with Sushila Ackerman [facility], before providingfeedback.CPT: 76923 Multi Family Group PsychotherapyPARENT GROUP:Skills Reviewed: Descriptive Statements and Labeled RewardsMother attended group and was actively engaged in session. She approachedme to speak privately regarding Ellis's response to group; she wasconcerned he was not taking the skills seriously and inquired if he shouldattend individual therapy. Co-film maker KIKA Love observed Ellis tofollow-up on mother's concern. Ellis contributed four times to groupdiscussion and appeared sincerely engaged with material, and peers andstaff. Based on this observation, it seems that Ellis Is responding well togroup therapy; will follow-up with mother to see if behaviors aregeneralizing at home and school.Valeri Bloom, [facility]SLicensed Professional Clinical Counselor, Pre Algebra Teacher Normal [facility] CNOV 08-12-2017 CNOV Office Visit (PPSREH) -GUSTAVO WHITE ([id number]) 04 [facility] [place] Time Provider Jvmpyifxln17/17/17 5:00 PM SUSHILA ACKERMAN During your visit today, we recorded the following information about you:Lit Durham [facility] 08/14/2017 12:12 PM SignedADHD [facility] ([facility])Social and Behavioral Skills GroupPatient Name: Gustavo WhiteMRN: [id number] Care Physician: Bakari Grant, MDDate of : 2005 Age: [age] year old Gender: male[facility] 3Dx: ADHD - COMBINEDDOS: 08/12/2017Time: 5:00 -6:30PMGustavo White is enrolled in a seven week social/behavioral skills traininggroup targeting Attention Deficit/Hyperactivity Disorder symptoms thatinterfere with social functioning. Child and parent groups run concurrently for90 minutes. The child groups are facilitated by Kings Mcneil, while parentgroups are facilitated by Valeri Bloom, [facility] and Lit Chicas, [place], [place].CPT: [id number] Group PsychotherapyCHILD GROUP:Skill Reviewed: Interrupting AppropriatelyBehavioral Observations*: Gustavo (Thaliaot;Marcio;) was actively engaged in thegroup activities and responded appropriately to the group contingencies. Hefrequently contributed thoughts and ideas to the group and demonstrated abilityto use the social skill appropriately throughout the session. During group,Ellis provided a variety of examples of inappropriate and appropriateinterruptions, and was able to differentiate between appropriate andinappropriate examples based on situation/timing and mode of interruption.Ellis can continue to work on consistently providing task-related, nonredundantstatements to the group and generalizing the skill to other settings.*Note: Mikel.Eddie.?s mother inquired with film maker about individual counseling forJ.C. based on concerns regarding difficulty managing anger and behavior athome, and reported difficulty generalizing social skills to the home setting.Hammer Setter to discuss behavioral observations and response to group settingwith Sushial Ackerman SK[facility] HOSPITALEddie-S, before providing feedback.CPT: [id number] Multi Family Group PsychotherapyPARENT GROUP:Skills Reviewed: Descriptive Statements and Labeled RewardsMother attended group and was actively engaged in session. She approached me tospeak privately regarding Mikel.Eddie.'s response to group; she was concerned he wasnot taking the skills seriously and inquired if he should attend individualtherapy. Co-film maker KIKA Love observed Ellis to follow-up on mother'sconcercelena ChavarriaC. contributed four times to group discussion and appeared sincerelyengaged with material, and peers and staff. Based on this observation, it seemsthat Ellis Is responding well to group therapy; will follow-up with mother tosee if behaviors are generalizing at home and school.Valeri Bloom, [facility]SLicensed Professional Clinical Counselor, SupervisorReferring Provider: SELF [200]Allergies As of Date: 08/12/2017(No Known Allergies)Date Reviewed: 06/21/2017Reviewed by: Jen (Rn) LEVIRA Katz - Fully AssessedReason for Visit: ADHD - Combined [1100]Primary Visit Diagnosis:Attention deficit hyperactivity disorder (ADHD), combined type, moderate [F90.2]Prescriptions as of 08/12/2017 Sig: SERTRALINE 100 MG TABLET Take 100 mg by mouth once eblla* METHYLPHENIDATE ER 54 MG TABL* Take 54 mg by mouth once ewa*Problem List As Of Date 08/12/2017 Noted Resolved 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] INVALID FOR* 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] INVALID FOR* 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]INVALID FOR* Depression [F32.9] INVALID FOR* ADHD (attention deficit hyperactivity disorder)*INVALID FOR* Status:Closed by [facility] Mo on 08/24/17 Normal [facility] PROGRESSon 08-07-2017 Protein HNO ID: [id number] thor: Lit [place] [facility]ervice: (none)Author Type: (none)Type: Progress NotesFiled: 08/19/2017 11:50 PMNote Text:ADHD [facility] ([facility])Social and Behavioral Skills GroupPatient Name: Gustavo WhiteMRN: [id number] Care Physician: Bakari Grant, MDDate of : 2005 Age: [age] year old Gender: [facility]: ADHD - COMBINEDDOS: 08/05/2017Time: 5:00 -6:30PMGustavo White is enrolled in a seven week social/behavioral skillstraining group targeting Attention Deficit/Hyperactivity Disorder symptomsthat interfere with social functioning. Child and parent groups runconcurrently for 90 minutes. The child groups are facilitated by Pearl, while parent groups are facilitated by Valeri Rand, [facility] and Lit [place], [place].CPT: 42812 Group PsychotherapyCHILD GROUP:Skill Reviewed: Size of the ProblemBehavioral Observations: Gustavo Crisostomo) was actively engaged in the groupactivities and responded appropriately to the group contingencies. Hefrequently contributed to the group and demonstrated comprehension of thesocial skill (size of the problem) throughout group activities. Duringgroup discussion, Ellis provided thorough and appropriate examples ofemotional reactions to different levels of problems. Ellis can continue towork on consistently providing relevant contributions to the groupdiscussion.CPT: 55877 Multi Family Group PsychotherapyPARENT GROUP:Skills Reviewed: Exploring role as a parent, 4-term contingency and Directvs. Indirect CommandsMother and Father participated in group discussion; they engaged in smallgroup discussion regarding using direct commands.Lit [place] BA, CTHila Valeri Espinoza, [facility]SLicensed Professional Clinical Counselor, SupervisorACET STAFF (under the supervision of Ronn Velazquez, PhD)Valeri Bloom [facility]SLiceramon Professional Clinical Counselor, Pre Algebra Teacher [facility] CNOV 08-05-2017 CNOV Office Visit (PPSREH) -GUSTAVO WHITE ([id number]) 3 MDate Time Provider Wtsjnftnmq93/10/17 5:00 PM SUSHILA ACKERMAN PPSREH During your visit today, we recorded the following information about you:Lit [place] [facility] 08/11/2017 1:36 PM Signed[facility] ([facility])Social and Behavioral Skills GroupPatient Name: Gustavo WhiteMRN: [id number] Care Physician: Bakari Grant, MDDate of : 2005 Age: [age] year old Gender: male[facility]: ADHD - COMBINEDDOS: 08/05/2017Time: 5:00 -6:30PMGustavo White is enrolled in a seven week social/behavioral skills traininggroup targeting Attention Deficit/Hyperactivity Disorder symptoms thatinterfere with social functioning. Child and parent groups run concurrently for90 minutes. The child groups are facilitated by Kings Mcneil, while parentgroups are facilitated by Valeri Bloom, [facility] and Lit [place], [place].CPT: 76564 Group PsychotherapyCHILD GROUP:Skill Reviewed: Size of the ProblemBehavioral Observations: Gustavo (KRISTINquot;Marcio;) was actively engaged in thegroup activities and responded appropriately to the group contingencies. Hefrequently contributed to the group and demonstrated comprehension of thesocial skill (size of the problem) throughout group activities. During groupdiscussion, Ellis provided thorough and appropriate examples of emotionalreactions to different levels of problems. Ellis can continue to work onconsistently providing relevant contributions to the group discussion.CPT: 17037 Multi Family Group PsychotherapyPARENT GROUP:Skills Reviewed: Exploring role as a parent, 4-term contingency and Direct vs.Indirect CommandsMother and Father participated in group discussion; they engaged in small groupdiscussion regarding using direct commands.Lit [place] BA, CTPick[facility] Valeri Espinoza [facility]SLicensed Professional Clinical Counselor, SupervisorACET STAFF (under the supervision of Ronn Velazquez, PhD)Valeri Bloom [facility]ic[facility] Professional Clinical Counselor, SupervisorReferring Provider: SELF [200]Allergies As of Date: 08/05/2017(No Known Allergies)Date Reviewed: 06/21/2017Reviewed by: Jen HowardRn) ELVIRA Katz - Fully AssessedReason for Visit: ADHD - Combined [1100]Primary Visit Diagnosis:Attention deficit hyperactivity disorder (ADHD), combined type, moderate [F90.2]Prescriptions as of 08/05/2017 Sig: SERTRALINE 100 MG TABLET Take 100 mg by mouth once bella* METHYLPHENIDATE ER 54 MG TABL* Take 54 mg by mouth once ewa*Problem List As Of Date 08/05/2017 Noted Resolved 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] INVALID FOR* 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.2] INVALID FOR* 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]INVALID FOR* Depression [F32.9] INVALID FOR* ADHD (attention deficit hyperactivity disorder)*INVALID FOR* Status:Closed by K[facility] on 08/19/17 Normal [facility] PROGRESSon 07-31-2017 Protein HNO ID: [id number] thor: Lit [place] [facility] Hospitalervice: (none)Author Type: (none)Type: Progress NotesFiled: 08/11/2017 6:22 AMNote Text:ADHD [facility] ([facility])Social and Behavioral Skills GroupPatient Name: Gustavo WhiteMRN: [id number] Care Physician: Bakari Grant, MDDate of : 2005 Age: [age] year old Gender: male[facility]x: ADHD - COMBINEDDOS: 07/29/2017Time: 5:00 -6:30PMGustavo White is enrolled in a seven week social/behavioral skillstraining group targeting Attention Deficit/Hyperactivity Disorder symptomsthat interfere with social functioning. Child and parent groups runconcurrently for 90 minutes. The child groups are facilitated by Pearl, while parent groups are facilitated by Sushila Medrano, [facility], [facility] and Lit [place], [place], [place].CPT: [id number] Group PsychotherapyCHILD GROUP:Skill Reviewed: Making Friends AND Finding SimilaritiesBehavioral Observations: Gustavo Crisostomo) was actively engaged in the groupactivities and responded appropriately to the group contingencies. Hefrequently contributed to group discussion and appropriately acceptedgroup limits set by facilitators. During group activities related tomaking friends, Ellis wrote that he gains a sense of pride and happinesswhen he meets new people. Overall, he demonstrated comprehension of theskill and group level system (i.e. Behavioral intervnetion) duringstructured activities. Ellis can continue to work on interruptingappropriately during group discussions.CPT: 45485 Multi Family Group PsychotherapyPARENT GROUP:Skills Reviewed: ADHD psychoeducation, confidentiality, parentexpectations for group, resources for ADHD (websites)Parent was engaged as evidenced by participating in small groupconversation.Lit [place] BA, KIKAFlValeri Aguilera, [facility]iceramon Professional Clinical Counselor, SupervisorACET STAFF (under the supervision of Ronn Velazquez, PhD)Valeri Bloom, [facility]icer[facility] Professional Clinical Counselor, Pre Algebra Teacher [facility] (PPSREH[facility] -GUSTAVO WHITE ([id number]) 3 [facility] Time Provider Qczuvmcmnv17/3/17 5:00 PM SUSHILA ACKERMAN PPSREH During your visit today, we recorded the following information about you:Lit Durham [facility] 08/04/2017 7:46 AM Signed[facility] ([facility])Social and Behavioral Skills GroupPatient Name: Gustavo WhiteMRN: [id number] Care Physician: Bakari Grant, MDDate of : 2005 Age: [age] year old Gender: male[facility]Dx: ADHD - COMBINEDDOS: 07/29/2017Time: 5:00 -6:30PMGustavo Eddie White is enrolled in a seven week social/behavioral skills traininggroup targeting Attention Deficit/Hyperactivity Disorder symptoms thatinterfere with social functioning. Child and parent groups run concurrently for90 minutes. The child groups are facilitated by Kings Mcneil, while parentgroups are facilitated by Valeri Bloom, [facility] and Lit [place], [place].CPT: 47221 Group PsychotherapyCHILD GROUP:Skill Reviewed: Making Friends ANDamp; Finding SimilaritiesBehavioral Observations: Gustavo (Eveline;Marcio;) was actively engaged in thegroup activities and responded appropriately to the group contingencies. Hefrequently contributed to group discussion and appropriately accepted grouplimits set by facilitators. During group activities related to making friends,MikelBroCarmina wrote that he gains a sense of pride and happiness when he meets newpeople. Overall, he demonstrated comprehension of the skill and group levelsystem (i.e. Behavioral intervnetion) during structured activities. Ellis cancontinue to work on interrupting appropriately during group discussions.CPT: 95265 Multi Family Group PsychotherapyPARENT GROUP:Skills Reviewed: ADHD psychoeducation, confidentiality, parent expectations forgroup, resources for ADHD (websites)Parent was engaged as evidenced by participating in small group conversation.Lit [place] BA, CTHiValeri Aguilera, [facility] Professional Clinical Counselor, SupervisorACET STAFF (under the supervision of Ronn Velazquez, PhD)Valeri Bloom, [facility] Professional Clinical Counselor, SupervisorReferring Provider: SELF [200]Allergies As of Date: 07/29/2017(No Known Allergies)Date Reviewed: 06/21/2017Reviewed by: Jen Olea) ELVIRA Katz - Fully AssessedReason for Visit: ADHD - Combined [1100]Primary Visit Diagnosis:Attention deficit hyperactivity disorder (ADHD), combined type, moderate [F90.2]Prescriptions as of 07/29/2017 Sig: SERTRALINE 100 MG TABLET Take 100 mg by mouth once bella* METHYLPHENIDATE ER 54 MG TABL* Take 54 mg by mouth once ewa*Problem List As Of Date 07/29/2017 Noted Resolved 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] INVALID FOR* 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.2] INVALID FOR* 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 Ptdc to home with dad with stable gait with crutches [facility] ED NOTE HNO ID: [id number] Author: Caitlin HowardRn) ELVIRA Zazueta Service: (none) Author Type: Registered Nurse Type: ED Notes Filed: 06/21/2017 10:07 AM Note Text: xray at bedside [facility] ED NOTE HNO ID: [id number] Author: Jen HowardRn) ELVIRA Katz Service: (none) Author Type: Registered Nurse Type: ED Notes Filed: 06/21/2017 9:10 AM Note Text: Ice pack applied to right ankle. [facility] INR Coag RelTime (Bld) HNO ID: [id number]: Jen HowardRn) ANDREZ Katzervice: (none)Author Type: Registered NurseType: ED NotesFiled: 06/21/2017 9:04 AMNote Text:Pt states I rolled my ankle for the 4th time this month at . 3+ pedal pulse with brisk cap refill. No obvious deformity. Normal [facility] ED PROV NOTEon 06-21-2017 ED PROV NOTE HNO ID: [id number] thor: Mindy Luciano, DOService: Emergency MedicineAuthor Type: PhysicianType: ED Provider NotesFiled: 06/21/2017 4:04 PMNote Text:ED Provider NotePatient Name: Gustavo WhiteMRN: [id number] DATE: 06/21/17HistoryPatient presents with:Ankle Injury: right ankle- I rolled it for the 4th time this cawgvFQV19 year-old male presents for evaluation of right ankle pain. Patientreports that he has rolled it several in the past month. Yesterday duringrecess, the patient inverted and twisted ankle while running at recessyest. Patient has increased pain with weight-bearing. No history ofparesthesia or abnormal sensations. History of Randell Schlatter disease.No prior ankle fracture or lower extremity injury. No hip or knee pain.PAST MEDICAL HISTORYDiagnosis Date- Attention deficit hyperactivity disorder- Congenital heart defect heart arrythmiaNo past surgical history on file.No family history on file.Social HistorySocial History Main Topics- Smoking status: Never Smoker- Smokeless tobacco: None- Alcohol use No- Drug use: None- Sexual activity: Not AskedALLERGIESNo Known AllergiesReview of SystemsConstitutional: Negative for activity change, appetite change, fatigue,fever and unexpected weight change.HENT: Negative for congestion, ear discharge, ear pain, facial swelling,mouth sores, rhinorrhea and sore throat.Eyes: Negative for photophobia, pain, discharge and redness.Respiratory: Negative. Negative for cough and shortness of breath.Cardiovascular: Negative.Gastrointestinal: Negative for abdominal pain, nausea and vomiting.Endocrine: Negative.Genitourinary: Negative for decreased urine volume, dysuria, frequency andhematuria.Musculoskeletal: Negative. Negative for neck pain and neck stiffness. Right ankle painSkin: Negative for rash.Neurological: Negative for seizures, syncope, weakness and headaches.Hematological: Negative.Psychiatric/Behavior al: Negative.Physical ExamBP 135/82 Pulse 93 Temp (Src) 98.4 (Oral) Resp 18 Wt 134 lb 7.7 oz(61.0kg) SpO2 97%Physical ExamConstitutional: He is oriented to person, place, and time. He appearswell-developed and well-nourished.Patient alert and comfortable in no acute distress.HENT:Head: Normocephalic and atraumatic.Right Ear: External ear normal.Left Ear: External ear normal.Nose: Nose normal.Mouth/Throat: Oropharynx is clear and moist.Eyes: Conjunctivae and EOM are normal. Pupils are equal, round, andreactive to light.Neck: Normal range of motion. Neck supple.Cardiovascular: Normal rate, regular rhythm and normal heart sounds.No murmur heard.Pulmonary/Chest: Effort normal and breath sounds normal. No respiratorydistress.Musculosk eletal:Generalized tenderness over right ankle, greatest over medial malleolus.No tenderness over tarsal bones. ROM limited slightly at ankle, FROM atknee and hip. 2+ DP, sensation intact. No ecchymosis.Neurological: He is alert and oriented to person, place, and time. He hasnormal reflexes.Non-focal exam. Normal gait.Skin: Skin is warm. No rash noted.No laceration or abrasion.Psychiatric: He has a normal mood and affect.Nursing note and vitals reviewed.Diagnostic TestingED Labs Ordered and Reviewed - No data to displayProceduresMedical Decision Making / ED CourseED Izyuxy89 year-old male with right ankle injury; tenderness and swelling on exam.NV intact.-Ibuprofen and Ice given for pain and swelling with brzxdbzltsd-W-hlcf obtained to evaluate injury ndnqhyr-C-amgb negative-Placed fabián wrap and air splint prior to discharge. Non-weightbearing withcrutches until follow-up with PCP-I reviewed worrisome signs and symptoms and discussed reasons to returnto the ER including increased swelling, worsening pain, new bruising orredness at site of injury, any paresthesias or for any additionalconcerns. I discussed supportive care of the injury including rest, ice,compression, elevation and use of Tylenol or Ibuprofen as needed.Follow-up with primary care provider oin 2 days, sooner as needed.Encounter Diagnosis ICD-10-CM1. Sprain of right ankle, unspecified ligament, initial encounter S93.401APlanThe Patient was DISCHARGED: Counseled patient and father regardingradiology results AND suspected diagnosis AND need for follow-up. Dischargedhome with verbal and written instructions. They were instructed to returnas needed for persistent or worsening symptoms or any new concerns.Condition at time of disposition: improved and stableSIGNATURE: Karen Peralta, DO06/21/17 1604 Normal [facility] XR ANKLE 3V AP/LAT/OBL RTon 06-21-2017 XR ANKLE 3V AP/LAT/OBL RT * * *Final Report* * *DATE OF EXAM: Jun 21 2017 10:22AM FVX 5297 - XR ANKLE 3V AP/LAT/OBL RT / REASON: Ankle pain * * * * Physician Interpretation * * * * EXAM: Ankle radiographsTECHNIQUE: XR ANKLE 3V AP/LAT/OBL RT -EXAM DATE: 06/21/2017 10:22 AMCLINICAL HISTORY: Ankle painCOMPARISON: NoneRESULTS: No acute fracture, dislocation or focal osseous lesion is seen. The ankle mortise is intact. The talar dome has normal appearance without sclerosis, irregularity or collapse.No localized soft tissue abnormalities identified.IMPRESSION:No abnormality identified.Wire Roller: PATIENCE Transcribe Date/Time: Jun 21 2017 10:30ADictated by : JANINA FORMAN MDThis examination was interpreted and the report reviewed and electronically signed by: JANINA FORMAN MD on Jun 21 2017 10:31AM [id number] Normal [facility] CNOVon 05-07-2017 CNOV Office Visit (PECAFV) -GUSTAVO WHITE ([id number]) 3 MDate Time Provider Department05/07/17 1:00 PM BENITA KAYE During your visit today, we recorded the following information about you: Pulse Blood pressure Weight Height 87/minute 116/76 59.9 kg 1.715 Stuart Kaye DO 05/07/2017 1:35 PM AddendumDiagnoses:?1. Premature atrial complexes, frequent a. Holter, 13.8% (01/03/14) b. Holter, 7.8% (01/12/16)2. AsymptomaticPlan:Ok to continue Concerta at the current dose.24-hour Holter monitor. Dr. Kaye will update family when results becomeavailable in 3-4 weeks.Tentatively follow-up with cardiology in 2 years or sooner if additionalsymptoms should arise or significant change in rhythm monitor results.No activity restrictions.No antibiotic before dental procedures (No SBE prophylaxis).How can you care for yourself at home?? Avoid caffeine, nicotine, and excess alcohol.? Do not take illegal drugs, such as methamphetamines and cocaine.? Do not take weight loss or diet medicines unless you talk with your doctorfirst.? Get plenty of sleep.? Do not overeat.? If you have palpitations again, take deep breaths and try to relax. This mayslow a racing heart.? If you start to feel lightheaded, lie down to avoid injuries that mightresult if you pass out and fall down.? Keep a record of your palpitations and bring it to your next doctor'sappointment. Write down:? The date and time.? Your pulse. (If your heart is beating fast, it may be hard to count yourpulse.)? What you were doing when the palpitations started.? How long the palpitations lasted.? Any other symptoms.? If an activity causes palpitations, slow down or stop. Talk to your doctorbefore you do that activity again.Benita Kaye DO 05/07/2017 1:43 PM SignedDear Bakari Grant MD:Diagnoses:?1. Premature atrial complexes, frequent a. Holter, 13.8% (01/03/14) b. Holter, 7.8% (01/12/16)2. AsymptomaticIt has been a pleasure to visit with Gustavo White, who is a 12 year old malepatient at [facility], on 05/07/17.Gustavo was here for a follow-up evaluation of premature junctional contractions(PJC) or rhythm. The severity and acuity of his cardiac findings areconsidered as mild and chronic.Gustavo was previously seen at the cardiology clinic on 01/12/16. During theprevious clinic visit, he had frequent PJCs without any cardiac symptoms, andhe was not aware of the PJCs. Since the previous cardiology clinic visit, sayhas continued to do well without any concerning symptoms. Gustavo is an activeindividual, and he does not have history of unexplained episodes of respiratorydistress, cyanosis, excessive diaphoresis, syncope, chest pain, palpitations,claudication or early fatigue associated with physical activities. As part ofhis screening, he does not have any modifying factors, such as fever /exercise, in the context of his cardiac lesions.The above history was obtained from Gustavo and his parents.REVIEW OF SYSTEMS: Urine output and bowel movements have been normal. Allother systems were reviewed and are negative.PAST MEDICAL HISTORY: Also see Diagnostic list above.ACTIVE PROBLEM LISTPremature Atrial ComplexesPremature Junctional Contractions (Hcc)Behavioral Disorder in Pediatric PatientDepressionAdhd (Attention Deficit Hyperactivity Disorder)FAMILY (CARDIAC) HISTORY: No family history of congenital heart disease, early(before 40 year-old) CAD, cardiomyopathy, Long QT syndrome, unexplained orearly sudden or arrhythmias.SOCIAL HISTORY: Gustavo is undergoing PT with the [employer] [facility] center. He lives at home with parents.IMMUNIZATION: UTD.ALLERGIESNo Known AllergiesCURRENT MEDICATIONS:sertraline (ZOLOFT) 100 mg tablet Take 100 mg by mouth once daily.methylphenidate ER (CONCERTA) 54 mg CR tablet Take 54 mg by mouth once daily.OBJECTIVE DATA: BP: 116/76BP Site: Right ArmBP Position: SittingBP Cuff Size: Regular AdultPulse: 87Weight: 59.9 kg (132 lb 0.9 oz)Height: 171.5 cm (5' 7.52ANDquot;)PHYSICAL EXAMINATION:General appearance: Gustavo is well-appearing, cooperative, acyanotic and in noacute distress.HEENT: Normacephalic / atraumatic. Mucous membranes are pink and moist. Neckis supple. No thyromegaly or neck mass. Conjunctivae are clear. There is nojugular venous distention. No dysmorphic facial features. No periorbitaledema.Respiratory: Lungs are clear to auscultation bilaterally, without increasedefforts.Cardiovascul ar: A comprehensive cardiovascular exam was performed. Precordiumis normoactive. Distal pulses are 2+ throughout with normal perfusion. Heartsound: Regular rate with irregular rhythm due to ectopies. Normal S1 and C8cwyld. Gustavo does not have any clicks, gallops or rubs. Murmur: Systole anddiastole are clear.Abdomen: Soft, nontender and nondistended. No hepatosplenomegaly.Extremitie s: Warm and well perfused without cyanosis, extremity / fingerclubbing or edema.Skin: no rash, petechiae or ecchymosis.NEURO: Moving all extremities. No gross sensory or motor deficits.MSK: No significant pectus.SPECIAL INVESTIGATIONS:EKG (05/07/17): I personally reviewed and interpreted the findings. Sinusrhythm with isolated premature junctional complexes (rate: 87 bpm). QTc isnormal at 438 msec. No evidence of chamber enlargement or ventricularhypertrophy.IMPRES FREDIS AND RECOMMENDATIONS: Gustavo White is a 12 year old male patientwith history of PJCs. Gustavo is clinically asymptomatic and thriving. Today'sevaluation showed that Gustavo continues to have PJCs that he is not clinicallyaware. Clinically he does not have any history of unexplained palpitations,dizziness nor syncope. Based his findings today, I recommended a 24 hourHolter monitor today to re-evaluate his PJC burden. In the meantime, I wouldonly recommend clinical monitoring without any interventions. I will updatethe family when the Holter results become available, then make additionalrecommendations.Ten tatively I would like him to return for another cardiology follow-up in 2years with an EKG + 24 hour Holter. In the meantime, I expect Gustavo to do verywell. From the cardiac standpoint, he will not require any SBE prophylaxis orany activity restrictions.If you have any additional questions or concerns, please do not hesitate tocontact us.Yours truly,CBro Kaye D.O., PhDMemorial Health System Pediatric CardiologyNew England Rehabilitation Hospital At LowellReferring Provider: SELF [[id number]]Allergies As of Date: 05/07/2017(No Known Allergies)Date Reviewed: 05/07/2017Reviewed by: Benita Kaye - Fully AssessedReason for Visit: Premature junctional rhythm [Other]Primary Visit Diagnosis: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.2] Other Visit Diagnosis: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]Prescriptions as of 05/07/2017 Sig: SERTRALINE 100 MG TABLET Take 100 mg by mouth once bella* METHYLPHENIDATE ER 54 MG TABL* Take 54 mg by mouth once ewa*Problem List As Of Date 05/07/2017 Noted Resolved 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] INVALID FOR* 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.2] INVALID FOR* 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 1. Premature atrial complexes, frequent a. Holter, 13.8% (3/14) b. Holter, 7.8% (01/12/16) 2. Asymptomatic Plan: Ok to continue Concerta at the current dose. 24-hour Holter monitor. Dr. Kaye will update family when results become available in 3-4 weeks. Tentatively follow-up with cardiology in 2 years or sooner if additional symptoms should arise or significant change in rhythm monitor results. No activity restrictions. No antibiotic before dental procedures (No SBE prophylaxis). How can you care for yourself at home? ? Avoid caffeine, nicotine, and excess alcohol. ? Do not take illegal drugs, such as methamphetamines and cocaine. ? Do not take weight loss or diet medicines unless you talk with your doctor first. ? Get plenty of sleep. ? Do not overeat. ? If you have palpitations again, take deep breaths and try to relax. This may slow a racing heart. ? If you start to feel lightheaded, lie down to avoid injuries that might result if you pass out and fall down. ? Keep a record of your palpitations and bring it to your next doctor's appointment. Write down: ? The date and time. ? Your pulse. (If your heart is beating fast, it may be hard to count your pulse.) ? What you were doing when the palpitations started. ? How long the palpitations lasted. ? Any other symptoms. ? If an activity causes palpitations, slow down or stop. Talk to your doctor before you do that activity again.Disposition: Return in about 2 years (around 05/07/2019).Follow-up and Disposition History RecordedEncounter Number: [id number] Status:Closed by BENITA KAYE DO on 05/07/17 Normal [facility] PROGRESSon 05-07-2017 Protein HNO ID: [id number] thor: Benita HerrerauService: (none)Author Type: PhysicianType: Progress NotesFiled: 05/07/2017 1:43 PMNote Text:Dear Bakari Grant MD:Diagnoses:?1. Premature atrial complexes, frequent a. Holter, 13.8% (01/03/14) b. Holter, 7.8% (01/12/16)2. AsymptomaticIt has been a pleasure to visit with Gustavo White, who is a 12 year oldmale patient [facility], on05/07/17. Gustavo was here for a follow-up evaluation of prematurejunctional contractions (PJC) or rhythm. The severity and acuity of hiscardiac findings are considered as mild and chronic.Gustavo was previously seen at the cardiology clinic on 01/12/16. During theprevious clinic visit, he had frequent PJCs without any cardiac symptoms,and he was not aware of the PJCs. Since the previous cardiology clinicvisit, he has continued to do well without any concerning symptoms. Gustavois an active individual, and he does not have history of unexplainedepisodes of respiratory distress, cyanosis, excessive diaphoresis,syncope, chest pain, palpitations, claudication or early fatigueassociated with physical activities. As part of his screening, he doesnot have any modifying factors, such as fever / exercise, in the contextof his cardiac lesions.The above history was obtained from Gustavo and his parents.REVIEW OF SYSTEMS: Urine output and bowel movements have been normal.All other systems were reviewed and are negative.PAST MEDICAL HISTORY: Also see Diagnostic list above.ACTIVE PROBLEM LISTPremature Atrial ComplexesPremature Junctional Contractions (Hcc)Behavioral Disorder in Pediatric PatientDepressionAdhd (Attention Deficit Hyperactivity Disorder)FAMILY (CARDIAC) HISTORY: No family history of congenital heart disease,early (before 40 year-old) CAD, cardiomyopathy, Long QT syndrome,unexplained or early sudden or arrhythmias.SOCIAL HISTORY: Gustavo is undergoing PT with [facility]. He lives at home with parents.IMMUNIZATION: UTD.ALLERGIESNo Known AllergiesCURRENT MEDICATIONS:sertraline (ZOLOFT) 100 mg tablet Take 100 mg by mouth once daily.methylphenidate ER (CONCERTA) 54 mg CR tablet Take 54 mg by mouth oncedaily.OBJECTIVE DATA: BP: 116/76BP Site: Right ArmBP Position: SittingBP Cuff Size: Regular AdultPulse: 87Weight: 59.9 kg (132 lb 0.9 oz)Height: 171.5 cm (5' 7.52)PHYSICAL EXAMINATION:General appearance: Gustavo is well-appearing, cooperative, acyanotic andin no acute distress.HEENT: Normacephalic / atraumatic. Mucous membranes are pink and moist.Neck is supple. No thyromegaly or neck mass. Conjunctivae are clear.There is no jugular venous distention. No dysmorphic facial features. Noperiorbital edema.Respiratory: Lungs are clear to auscultation bilaterally, withoutincreased efforts.Cardiovascular: A comprehensive cardiovascular exam was performed.Precordium is normoactive. Distal pulses are 2+ throughout with normalperfusion. Heart sound: Regular rate with irregular rhythm due toectopies. Normal S1 and S2 split. Gustavo does not have any clicks,gallops or rubs. Murmur: Systole and diastole are clear.Abdomen: Soft, nontender and nondistended. No hepatosplenomegaly.Extremitie s: Warm and well perfused without cyanosis, extremity / fingerclubbing or edema.Skin: no rash, petechiae or ecchymosis.NEURO: Moving all extremities. No gross sensory or motor deficits.MSK: No significant pectus.SPECIAL INVESTIGATIONS:EKG (05/07/17): I personally reviewed and interpreted the findings.Sinus rhythm with isolated premature junctional complexes (rate: 87 bpm).QTc is normal at 438 msec. No evidence of chamber enlargement orventricular hypertrophy.IMPRESSION AND RECOMMENDATIONS: Gustavo White is a 12 year old malepatient with history of PJCs. Gustavo is clinically asymptomatic andthriving. Today's evaluation showed that Gustavo continues to have PJCsthat he is not clinically aware. Clinically he does not have any historyof unexplained palpitations, dizziness nor syncope. Based his findingstoday, I recommended a 24 hour Holter monitor today to re-evaluate his PJCburden. In the meantime, I would only recommend clinical monitoringwithout any interventions. I will update the family when the Holterresults become available, then make additional recommendations.Tentatively I would like him to return for another cardiology follow-up in2 years with an EKG + 24 hour Holter. In the meantime, I expect Gustavo todo very well. From the cardiac standpoint, he will not require any SBEprophylaxis or any activity restrictions.If you have any additional questions or concerns, please do not hesitateto contact us.Yours truly,Carmina Kaye D.O., PhDMemorial Health System Pediatric CardiologyGlacial Ridge Hospital Encounters Encounter Date Encounter Type Care Provider Facility Start: 02-09-2025 End: 02-09-2025 ambulatory Shawn Mccoy MD Work Phone: [facility] Work Phone: Start: 02-09-2025 End: 02-09-[address] Shawn Mccoy MD -Physical Therapy Work Phone: Start: 12-07-2024 End: 12-07-[address] Shawn Mccoy MD -Radiology, [place] Work Phone: Start: 12-07-2024 End: 12-07-2024 ambulatory Shawn Mccoy Facility:[facility] Start: 03-11-2024 End: 03-11-2024 ambulatory Shawn Nadine Facility:[facility] Start: 09-16-2017 End: 05-06-2018 Ambulatory [facility] Start: 09-09-2017 End: 09-22-2017 Ambulatory [facility] Start: 09-02-2017 End: 05-06-2018 Ambulatory [facility] Start: 08-19-2017 End: 05-06-2018 Ambulatory [facility] Start: 08-12-2017 End: 05-06-2018 Ambulatory [facility] Start: 08-05-2017 End: 05-06-2018 Ambulatory [facility] Start: 07-29-2017 End: 05-06-2018 Ambulatory [facility] Start: 06-21-2017 End: 06-21-2017 Emergency department patient visit [facility] Start: 05-07-2017 End: 05-24-2017 Ambulatory [facility] Procedures Date Procedure Procedure Detail Performing Clinician Start: 12-07-2024 Plain X-ray of shoulder Shawn Mccoy MD Work Phone: Payers Date Payer Category Payer Self-pay 2024 Unknown [id number] Unknown [id number] Unknown [id number] Unknown [id number] Social History Date Type Detail Facility Tobacco smoking stat [facility] Unknown if ever smoked [facility] Work Phone: Start: 02-10-2025 Sex Male (finding) [facility] Start: 2005 Sex Assigned At Male [facility] Discharge summary 02-09-2025 Note Date & Type Note Facility 02-09-2025 Discharge summary Note Date/Time February 09, 2025 7:00pm [facility] Physical Therapy [facility] [address] [place] [address] / REHABILITATION SERVICES DISCHARGE SUMMARY MR#: [id number] Acct: [id number] Name: GUSTAVO WHITE Rep #: [id number] : 2005 19 From: Lit Ortiz DPT, OCS, CSCS Referring Dr.: Dr. Shawn Mccoy MD Status: REG R Insurance: [facility] SELF PAY INSURANCE Discharge Summary D/C summary: It has been my pleasure to treat GUSTAVO WHITE referred by Shawn Mccoy MD, withthe diagnosis of R shoulder pain for a total of 15 visit(s). Discharge Date: 02/09/25 Please see the following information for a summary of their discharge status. Subjective Subjective: Feeling pretty good. Not much pain. Still gets some clicking with anything strenuous. Got it after a couple machines. No pain with clicking. Clicking is less often and improving. Does ex at home gym. Using bands at home. Pain R scapular: Pain Intensity (Out of 10): 0 Overall Improvement % Improvement: 95 Objective Objective/Function: Full arom scap and g-h R and L without pain. Does get grinding with protrusion of R scapula palpable and audible but can control position of scapula better now. Goals Goal 1:: sleep without interruption form shoulder Goal Progress: Goal Met Goal 2:: lift R arm without clicking and instability Goal Progress: Goal Met Goal 3:: Patient feel 80% better in shoulder pain and clicking Goal Progress: 95% Goal 4:: I appropriate CHANEL to limit future problems Goal Progress: Goal Met Goal 5:: quic15 or less.quickdash Goal Progress: Goal Met Plan Plan: d/c to HEP D/C Information Discharge Comments: Pt 95% better but grinding in R scap persists, will get massage next week and check with Dr. Mccoy as needed. Will continue HEP for upper half strengthening d/c sentence: If there are questions or concerns regarding this patient's physical therapy, please feel free to call me at [phone]. Thank you for the referral of thispatient. Sincerely, Lit Ortiz, DPT, OCS, CSCS Balance/Gait/Functional tests Balance/Special Test Scores Quick DASH Score: 6.8175 Improvement % Improvement: 95 <Electronically signed by Lit Ortiz DPT, OCS, CSCS> 02/09/25 1644 CC: Dr. Shawn Mccoy MD ~ EBG Signed [facility] Work Phone: Discharge summary 02-09-2025 Note Date & Type Note Facility 02-09-2025 Discharge summary [facility] Evaluation note Note Date & Type Note Facility Evaluation note No assessment information availa ble [facility] Work Phone: Reason for referral (narrative) Note Date & Type Note Facility Reason for referral (narrative) No reason for referral information available [facility] Work Phone: Summary Purpose Family History No Family History Records FoundNo Family History Records FoundNo Family History Records Found Advance Directives No Advanced Directives Records FoundNo Advanced Directives Records FoundNo Advanced Directives Records Found Chief Complaint and Reason for Visit Chief Complaint Admit Date CHronic shoulder- RIGHT SHOULDER Februar y 2024 1:05pm R SHOULDER RX HERE February 09, 2025 4:3 0pm Additional Source Comments (unrecognized sect ion and content) No Status Records FoundNo Status Records FoundNo Status Records Found INFORMATION SOURCE (unrecogn ized section and content) DATE CREATED AUTHOR 04/22/2018 [facility] DATE CREATED AUTHOR AUTHOR'S ORGANIZ ATION 05/06/2018 [facility] DATE CREATED AUTHOR AUTHOR'S ORGANIZ ATION 02/12/2025 [facility] Care Teams (unrecognized sec tion and content) Team Status: Active Member Role Status Charles Mccoy MD Primary Care Provider Active Team Status: Inactive Member Role Status Charles Mccoy MD Primary Care Provider Active St art: December 07, 2024 End: December 07, 2024 Shanw Mccoy MD Attending Provider Active Start : December 07, 2024 End: December 07, 2024 Shawn Mccoy MD Referring Provider Active Start : December 07, 2024 End: December 07, 2024 Team Status: Inactive Member Role Status Charles Mccoy MD Primary Care Provider Active St art: February 09, 2025 End: February 09, 2025 Shawn Mccoy MD Attending Provider Active Start : February 09, 2025 End: February 09, 2025 Shawn Mccoy MD Referring Provider Active Start : February 09, 2025 End: February 09, 2025 Goals (unrecognized section and content) Goals may be documented in a n alternate section FOR RECORDS PERTAINING TO PATIENTS WHO ARE OR HAVE BEEN ENROLLED IN A CHEMICAL DEPENDENCY/SUBSTANCEABUSE PROGRAM, SOME INFORMATION MAY BE OMITTED. This clinical summary was aggregated from multiple sources. Caution should be exercised in using it in the provision of clinical care. This summary normalizes information from multiple sources, and as a consequence, information in this document may materially change the coding, format and clinical context of patient data. In addition, data may be omitted in some cases. CLINICAL DECISIONS SHOULD BE BASED ON THE PRIMARY CLINICAL RECORDS. [employer] provides no warranty or guarantee of the accuracy or completeness of information in this document.
== END | disposition home or self-care (01) ==
PROVIDERS: PCP Family Medicine; Referring Provider Family Medicine; Visit Provider Family Medicine
DX: M25.511 Pain in right shoulder (principal); G89.29 Other chronic pain
CPT/HCPCS: 73221